=== PATIENT | male | born 1935 ===

== ENCOUNTER 2021-06-13 18:10 | Outpatient (NON) | payer MEDICARE, SELFPAY ==
[2021-06-13 19:22] LABS: Alanine Aminotransferase 23 U/L (16-63); Albumin Level 3.1 g/dL (3.4-5.0); Alkaline Phosphatase 93 U/L (46-116); Anion Gap 5 mmol/L (8-16); Aspartate Amino Transferase 24 U/L (15-37); Bilirubin,Total 0.5 mg/dL (0.00-1.00); Blood Urea Nitrogen 25 mg/dL (7-18); Calcium 8.4 mg/dL (8.5-10.1); Carbon Dioxide 31 mmol/L (21-32); Chloride 105 mmol/L (98-108); Estimated Glomerular Filt Rate 47; Glucose 98 mg/dL (70-99); Osmolality Calculated 296 mOsm/kg (285-295); Potassium 4.4 mmol/L (3.5-5.1); Sodium 141 mmol/L (136-145); Total Protein 6.1 g/dL (6.4-8.2)
== END 2021-06-13 18:11 | disposition home or self-care (01) ==
LOC: CHSLAB 18:48
PROVIDERS: Visit Provider Internal Medicine
DX: E78.49 Other hyperlipidemia (principal); I10 Essential (primary) hypertension
CPT/HCPCS: 36415; 80053